=== PATIENT | male | born 1970 | race Caucasian/White ===

== ENCOUNTER 2023-02-20 10:34 | Outpatient (CLI) | payer BC ==
--- NOTE | 2023-02-20 11:01 | XRAY Report ---
PROCEDURE: Hip w/Pelvis 2-3V LT INDICATIONS: LEFT HIP PAIN TECHNIQUE: AP pelvis with lateral view(s) of the left hip(s). COMPARISON: None. FINDINGS: Bones: No fractures or dislocations. Asymmetric mild left hip joint osteoarthritic changes are seen with superior joint space narrowing and subchondral sclerosis. No suspicious bony lesions. Promi nence of superior anterior left femoral head neck junction is seen which can be seen associated with cam-type femoral acetabular impingement. Soft tissues: No suspicious soft tissue calcifications or masses. IMPRESSION: No acute bony abnormality. Mild left hip joint osteoarthritis. 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 No evidence of avascular necrosis of femoral head. Reviewed by: Zohaib Clemens MD on 02/20/2023 10:59 AM PDT Approved by: Zohaib Clemens MD on 02/20/2023 10:59 AM PDT Station ID: [id number]
== END 2023-02-20 10:35 | disposition home or self-care (01) ==
LOC: DI.S 10:34
PROVIDERS: ATTEND Internal Medicine
DX: M16.12 Unilateral primary osteoarthritis, left hip (principal); Z87.39 Personal history of other diseases of the musculoskeletal system and connective tissue